=== PATIENT | male | born 1985 | race Caucasian/White ===

== ENCOUNTER → 2022-02-26 | Outpatient (CLI) | payer BC, SELFPAY ==
--- NOTE | 2022-02-26 | VAS_PTH ---
PATIENT: ROBERTO LANGFORD [id number] AGE/SX: 36/M ROOM: RE02/26/[address]: Dr. Sd Faustin MD : 1985 BED: DIS: 02/26/2022 SPEC #: [id number] RECD: 02/26/22 12:01 STATUS: AALIYAH OLGA #: [id number] BIANKA: 02/26/22 00:[address]: Sd Faustin DEPT: SURGICAL PATHOLOGY RECD BY: Jacqueline Kimball Tissues: A - Vas deferens, NOS B - Vas deferens, NOS Procedures: Surgery Specimen Level II HEADER OPERATION: Bilateral partial vasectomy PRE-OP DIAGNOSIS: Sterilization TISSUE SUBMITTED: A ? Right vas deferens, B ? Left vas deferens MICROSCOPIC DIAGNOSIS A. Right vas deferens, segmental vasectomy: Complete segment of vas deferens with no pathologic change. B. Left vas deferens, segmental vasectomy: Complete segment of vas deferens with no pathologic change. AM:gita 03/01/2022 MICROSCOPIC DESCRIPTION Slides are reviewed. GROSS DESCRIPTION A - Received is one container designated right vas deferens. The specimen consists of a cylindrical segment of pink-escobar soft tissue measuring 1.8 cm in length and 0.2 cm in maximum diameter. The specimen totally submitted in one cassette. B - Received is one container designated left vas deferens. The specimen consists of a cylindrical segment of pink-escobar soft tissue measuring 1.5 cm in length and 0.2 cm in maximum diameter. The specimen is totally submitted in one cassette. / AM:gita 02/26/2022 TC:4 CPT: 96492 x2
== END | disposition home or self-care (01) ==
LOC: LABSPEC 12:10
PROVIDERS: Visit Provider Surgery
DX: Z30.2 Encounter for sterilization (principal)
CPT/HCPCS: 88302

== ENCOUNTER → 2022-04-17 | Outpatient (CLI) | payer BC, SELFPAY ==
[2022-04-17 13:21] LABS: Semen Analysis Post Vas ABSENT
[2022-04-20 09:45] LABS: Pathologist Review Reviewed
== END | disposition home or self-care (01) ==
PROVIDERS: Referring Provider Surgery; Visit Provider Surgery
DX: Z30.2 Encounter for sterilization (principal)
CPT/HCPCS: 89321

== ENCOUNTER → 2022-04-24 | Outpatient (CLI) | payer BC, SELFPAY ==
[2022-04-24 13:01] LABS: Semen Analysis Post Vas ABSENT
[2022-04-26 13:42] LABS: Pathologist Review Reviewed
== END | disposition home or self-care (01) ==
LOC: LABSPEC 11:38
PROVIDERS: Visit Provider Surgery
DX: Z30.2 Encounter for sterilization (principal)
CPT/HCPCS: 89321